=== PATIENT | female | born 1995 | race Asian ===

== ENCOUNTER 2021-08-23 12:04 | Emergency (ER) | payer OTHER ==
[~2021-08-23] VITALS: Ht 167.6 cm; Wt 65.4 kg
[2021-08-23 12:08] VITALS: BP 104/62; TEMP 98.7
== END 2021-08-23 14:05 | disposition home or self-care (01) ==
LOC: ED 12:04
DX: R10.84 Generalized abdominal pain (principal); N91.2 Amenorrhea, unspecified; Z32.02 Encounter for pregnancy test, result negative
CPT/HCPCS: 81000; 81025; 84702; 99283